=== PATIENT | female | born 1985 | race African-American/Black ===

== ENCOUNTER 2022-11-20 11:44 | Inpatient (IN) | payer MEDICAID ==
[~2022-11-20] VITALS: Ht 167.6 cm; Wt 80.0 kg
[~2022-11-20 11:44] MED LIST: PREN-88 PO
[2022-11-20] MEDS ORDERED: HYDROCODONE/ACETAMINOPHEN 5/325MG TABLET PO STA (13:32)
[2022-11-20 16:07] LABS: BASOPHILS % 0.3 % (0.0-2.0); EOSINOPHILS % 0.4 % (0.0-5.0); HEMATOCRIT. 41.4 % (36.0-48.0); HEMOGLOBIN. 13.8 g/dL (12.0-16.0); LYMPHOCYTES % 24.3 % (20.0-50.0); MEAN CORPUSCULAR VOLUME 84.1 fL (81.0-99.0); MEAN PLATELET VOLUME 8.6 fl (7.4-10.4); MONOCYTES % 9.2 % (2.0-8.0); NEUTROPHILS % 65.8 % (40.0-76.0); PLATELET 227 x1000/uL (130-400); RED BLOOD CELL COUNT 4.92 mill/uL (4.2-5.4); RED CELL DISTRIBUTION WIDTH 13.8 % (11.6-14.6)
[2022-11-20 16:10] LABS: CHLORIDE 103 mEq/L (98-107)
[2022-11-20 19:41] LABS: HCG SCREEN POSITIVE
[2022-11-21] MEDS ORDERED: PROPOFOL 200MG/20ML VIAL IV ONE (10:19)
[2022-11-21] MEDS ORDERED: MIDAZOLAM HCL 2 MG/2 ML VIAL ONE (10:20)
[2022-11-21] MEDS ORDERED: FENTANYL CITRATE/PF 50MCG/ML 2ML VIAL ONE (10:21)
[2022-11-21] MEDS ORDERED: SUCCINYLCHOLINE CHLORIDE 200MG/10ML IV ONE (10:23)
[2022-11-21] MEDS ORDERED: ONDANSETRON HCL 4MG/2ML INJ ONE (11:00)
[2022-11-21] MEDS ORDERED: DEXAMETHASONE 4MG/ML 1ML VIAL ONE (11:00)
[2022-11-21] MEDS ORDERED: KETOROLAC 30MG/ML VIAL ONE (11:00)
[2022-11-21] MEDS ORDERED: HYDROMORPHONE HCL/PF 2MG/ML CPJ IV PRN (11:00)
[2022-11-21] MEDS ORDERED: MEPERIDINE HCL/PF 25MG/ML CPJ IV PRN (11:00)
[2022-11-21] MEDS ORDERED: LIDOCAINE HCL 1% 20ML VIAL (Pyxis) INJ ONE (11:00)
[2022-11-21] MEDS ORDERED: CEFAZOLIN SODIUM 1000MG/VIAL ONE (11:03)
[2022-11-21] MEDS ORDERED: [UNRECOGNIZED DRUG - CODE] IM ×2 (11:11)
[2022-11-21] MEDS ORDERED: IBUP-2030 MT (11:15)
[2022-11-21] MEDS ORDERED: RHO(D) IMMUNE GLOBULIN 300 MCG/SYR IM SCH (11:45)
[2022-11-21] MEDS: FENTANYL CITRATE/PF 50MCG/ML 2ML VIAL IV PRN ×4 (11:47→12:26)
[2022-11-21 12:26] VITALS: BP 111/56
[2022-11-21] MEDS ORDERED: IBUPROFEN 400MG TABLET PO NR (15:15)
== END 2022-11-21 13:44 | disposition home or self-care (01) | DRG 543 ==
LOC: ER 11:44 → MICUSO 15:57
PROVIDERS: ADMIT Obstetrics & Gynecology; ATTEND Obstetrics & Gynecology
PROC: 10D17ZZ Extraction of Products of Conception, Retained, Via Natural or Artificial Opening (ICD-10-PCS; principal; 2022-11-21)
DX: O02.1 Missed abortion (principal); Z20.822 Contact with and (suspected) exposure to COVID-19
CPT/HCPCS: 36415; 76801; 80053; 84703; 85025; 86850; 86900; 87426; 88305; 90384; 99285; C9803; J0330; J0690; J1100; J1885; J2250; J2405; J2704; J3010; J3490; J2791

== ENCOUNTER 2022-11-26 06:35 | Inpatient (IN) | payer MEDICAID ==
[~2022-11-26] VITALS: Ht 175.3 cm; Wt 68.5 kg
[~2022-11-26 06:35] MED LIST changes: +IBUP-2030 MT
[2022-11-26] MEDS ORDERED: MORPHINE SULFATE 4 MG/ML CPJ (NOT FOR IM USE) IV ONE (08:45)
[2022-11-26 10:57] LABS: CHLORIDE 106 mEq/L (98-107)
[2022-11-26 11:02] LABS: BASOPHILS % 0.4 % (0.0-2.0); EOSINOPHILS % 0.9 % (0.0-5.0); HEMATOCRIT. 33.1 % (36.0-48.0); HEMOGLOBIN. 11.2 g/dL (12.0-16.0); LYMPHOCYTES % 22.5 % (20.0-50.0); MEAN CORPUSCULAR HEMOGLOBIN 28.4 pg (28.0-32.0); MEAN CORPUSCULAR VOLUME 84.2 fL (81.0-99.0); MEAN PLATELET VOLUME 8.5 fl (7.4-10.4); MONOCYTES % 10.9 % (2.0-8.0); NEUTROPHILS % 65.3 % (40.0-76.0); PLATELET 231 x1000/uL (130-400); RED BLOOD CELL COUNT 3.93 mill/uL (4.2-5.4); RED CELL DISTRIBUTION WIDTH 14.2 % (11.6-14.6)
[2022-11-26 11:53] LABS: HCG SCREEN POSITIVE
[2022-11-26] MEDS ORDERED: CEFAZOLIN 1000MG PREMIX 50 ML IV NR (14:44)
[2022-11-26] MEDS ORDERED: IBUPROFEN 800MG TABLET PO NR (14:47)
[2022-11-26 15:03] LABS: CLARITY URINE CLEAR (CLEAR); COLOR URINE YELLOW (YELLOW); KETONES URINE NEGATIVE (NEGATIVE); LEUKOCYTE ESTERASE URINE NEGATIVE (NEGATIVE); NITRITE URINE NEGATIVE (NEGATIVE); OCCULT BLOOD URINE 2+ (NEGATIVE); PROTEIN URINE NEGATIVE (NEGATIVE); SPECIFIC GRAVITY URINE 1.015 (1.005-1.030); UROBILINOGEN URINE 0.2 E.U./dL (0.2-1.0)
[2022-11-26] MEDS ORDERED: CEFAZOLIN 2000MG in DEXTROSE 5% WATER 100ML IV NR (16:00)
[2022-11-26 20:00] VITALS: BP 115/61
[2022-11-26] MEDS ORDERED: IBUPROFEN 800MG TABLET PO PRN (21:15)
[2022-11-26] MEDS: CEFAZOLIN 1000MG PREMIX 50 ML IV SCH (22:45)
[2022-11-27] VITALS: BP 120/62
[2022-11-27 04:00] VITALS: BP 124/64
[2022-11-27] MEDS: CEFAZOLIN 1000MG PREMIX 50 ML IV SCH (04:55)
[2022-11-27 07:04] LABS: HEMATOCRIT 32.1 % (36.0-48.0); HEMOGLOBIN 10.9 g/dL (12.0-16.0); MEAN CORPUSCULAR HEMOGLOBIN 28.7 pg (28.0-32.0); MEAN CORPUSCULAR VOLUME 84.3 fL (81.0-99.0); PLATELET 219 x1000/uL (130-400); RED BLOOD CELL COUNT 3.81 mill/uL (4.2-5.4); RED CELL DISTRIBUTION WIDTH 13.6 % (11.6-14.6)
[2022-11-27] MEDS ORDERED: FERR325T23 MT (08:13)
[2022-11-27 09:57] VITALS: BP 115/69
== END 2022-11-27 10:33 | disposition home or self-care (01) | DRG 463 ==
LOC: ER 06:35 → 6EST 13:23 → EDBEDREQTM 13:29 → EDBEDREQSVC 13:29 → EDBEDREQ 13:29 → EDBEDREQSVC 13:56
PROVIDERS: ADMIT Obstetrics & Gynecology; ATTEND Obstetrics & Gynecology
DX: N39.0 Urinary tract infection, site not specified (principal); N93.9 Abnormal uterine and vaginal bleeding, unspecified
CPT/HCPCS: 36415; 76830; 76856; 80048; 81003; 84702; 84703; 85025; 85027; 86850; 86870; 86900; 99285; J0690; J2270; J7060